=== PATIENT | male | born 1995 | race Caucasian/White ===

== ENCOUNTER 2020-02-25 11:15 | Emergency (ER) | payer OTHER ==
[~2020-02-25] VITALS: Ht 175.3 cm; Wt 54.4 kg
[2020-02-25 11:24] VITALS: BP 108/52
--- NOTE | 2020-02-25 11:39 | NUR ---
BIB self from home (via Urgent Care), for bug bites left back/axilla area, about 7-8 red raised spots Went to and was sent to an ER. NKDA, PMH denies, denies drug or substance abuse. A, A, Ox4, moving all extremities w/o difficulty Denies itching or pain at this time Resp even and unlabored, in NAD, VVS Will continue to monitor and educate
[2020-02-25 12:16] VITALS: BP 108/52
--- NOTE | 2020-02-25 12:16 | NUR ---
Patient discharged with v/s stable. Written and verbal after care instructions given and explained. Patient alert, oriented and verbalized understanding of instructions. Ambulatory with steady gait. All questions addressed prior to discharge. ID band removed. Patient advised to follow up with PMD. Rx of PREDNISONE AND BENADRYL WAS given. Patient educated on indication of medication including possible reaction and side effects. Opportunity to ask questions provided and answered.
== END 2020-02-25 12:16 | disposition home or self-care (01) ==
LOC: MED 11:15
DX: S40.862A Insect bite (nonvenomous) of left upper arm, initial encounter (principal); R21 Rash and other nonspecific skin eruption; W57.XXXA Bitten or stung by nonvenomous insect and other nonvenomous arthropods, initial encounter; Y93.89 Activity, other specified; Y92.89 Other specified places as the place of occurrence of the external cause; Y99.8 Other external cause status
CPT/HCPCS: 99283

== ENCOUNTER 2021-01-12 02:50 | Emergency (ER) | payer OTHER ==
[~2021-01-12] VITALS: Ht 175.3 cm; Wt 54.4 kg
[2021-01-12 03:00] VITALS: BP 129/88
--- NOTE | 2021-01-12 03:03 | NUR ---
TO BED AMBULATORY
--- NOTE | 2021-01-12 03:10 | NUR ---
25 Y/O MALE CAME TO THE ED C/O RT EAR PAIN. PER PT, "I WENT SWIMMING ON MONDAY, AND I FELT LIKE SOMETHING WAS HURTING IN MY RT EAR. THROBBING EAR PAIN OF 10/10, AND I DONT KNOW IF IT IS SWOLLEN. IT RADIATES TO MY RT NONDENOMINATIONAL TO MY RT JAW" A&OX4, GCS 15. PT STATES THAT HE HAS NAUSEA, AND DIZZINESS. PMH: DENIES ALLERGIES: AMOXICILLIN
--- NOTE | 2021-01-12 03:14 | NUR ---
Patient being evaluated by physician at bedside.
[2021-01-12 03:50] VITALS: BP 129/88
[2021-01-12] MEDS ORDERED: AZIT250T4 PO (04:15)
[2021-01-12] MEDS ORDERED: CARB15DR61 OT (04:43)
--- NOTE | 2021-01-12 04:48 | NUR ---
Patient discharged with v/s stable. Written and verbal after care instructions given and explained. Patient alert, oriented and verbalized understanding of instructions. Ambulatory with steady gait. All questions addressed prior to discharge. ID band removed. Patient advised to follow up with PMD. Rx of AZITHROMYCIN AND DEBROX given. Patient educated on indication of medication including possible reaction and side effects. Opportunity to ask questions provided and answered.
== END 2021-01-12 04:48 | disposition home or self-care (01) ==
LOC: MED 02:50
DX: H66.91 Otitis media, unspecified, right ear (principal); H61.21 Impacted cerumen, right ear; Z88.1 Allergy status to other antibiotic agents
CPT/HCPCS: 99283